=== PATIENT | female | born 1965 ===

== ENCOUNTER 2022-08-04 08:18 | Inpatient (IN) ==
[~2022-08-04 08:18] MED LIST: Buffered Lidocaine 1% SYRIN 1 ml INTRADERM ONE; Lactated Ringers 1000 ml BAG 1,000 ML IV SCH; Naloxone 0.4 mg VIAL 0.4 mg/ml 1 ml VIAL IV PRN; Ondansetron 4 mg VIAL 2 MG/ML 2 ml VIAL IV PRN; fentaNYL 100 mcg/2 ml 50 MCG/ML VIAL IV PRN; oxyCODONE/Acetamin 5/325 mg TAB PO PRN
[2022-08-04] MEDS ORDERED: Heparin 5000 UNITS/ML 1 mL VIAL ONE (09:00)
[2022-08-04] MEDS ORDERED: Dexamethasone IV 4 MG/ML VIAL 1 ml VIAL ONE ×2 (09:00→11:35)
[2022-08-04] MEDS ORDERED: Ondansetron 4 mg VIAL 2 MG/ML 2 ml VIAL ONE ×2 (09:00→14:43)
[2022-08-04] MEDS ORDERED: Scopolamine 1 mg/72hr PATCH ONE (09:00)
[2022-08-04] MEDS ORDERED: ceFAZolin 2 GM in NS PREMIX 2 GM/100 ML BAG IVPB ONE (09:01)
[2022-08-04] MEDS ORDERED: Gentamicin ADULT 40 MG/ML VIAL (2 ML VIAL = 80 MG) ONE (09:08)
[2022-08-04] MEDS ORDERED: Povidone Iodine 5% OPTH 30 ML BTL ONE (09:08)
[2022-08-04] MEDS ORDERED: ceFAZolin VIAL VIAL ONE ×2 (09:09→12:35)
[2022-08-04] MEDS ORDERED: Bupivacaine 0.25% SDV 30 ML ONE (09:09)
[2022-08-04] MEDS ORDERED: fentaNYL 100 mcg/2 ml 50 MCG/ML VIAL ONE (09:27)
[2022-08-04] MEDS ORDERED: Midazolam 2 mg/2 ml VIAL 1 mg/ml 2 ml VIAL (2 mg) ONE (09:27)
[2022-08-04] MEDS ORDERED: Lidocaine 2% PF 5 ML VIAL ONE (09:27)
[2022-08-04] MEDS ORDERED: Propofol 10 MG/ML 20 ML BTL ONE ×3 (09:27→14:44)
[2022-08-04] MEDS ORDERED: Bupivacaine 0.5% SDV PF 30ML VIAL ONE (10:41)
[2022-08-04] MEDS ORDERED: Sevoflurane BOTTLE ONE (11:28)
[2022-08-04] MEDS ORDERED: Rocuronium 50 mg VIAL 10 mg/ml 5 ml VIAL (50 mg) ONE (11:40)
[2022-08-04] MEDS ORDERED: Acetaminophen IV 1 GM/100ML 1,000 MG/100 ML BAG IV ONE (12:16)
[2022-08-04] MEDS ORDERED: HYDROmorphone 0.5 MG/0.5 ML SYRINGE ONE ×2 (12:31→14:42)
[2022-08-04] MEDS ORDERED: HYDROcodone/ACETAMIN 5/325 mg TAB PO PRN (13:22)
[2022-08-04] MEDS ORDERED: Morphine 2 MG/ML SYRINGE IV PRN (13:24)
[2022-08-04] MEDS ORDERED: Benzocaine/Menthol LOZ PO PRN (13:25)
[2022-08-04] MEDS ORDERED: Scopolamine 1 mg/72hr PATCH TRANSDERM SCH (14:00)
[2022-08-04] MEDS ORDERED: ceFAZolin 1 GM ADVAN 1 GM ADDV.VIAL IVPB ONE (14:56)
[2022-08-04] MEDS ORDERED: oxyCODONE/Acetamin 5/325 mg TAB ONE (16:18)
[2022-08-04] MEDS: Heparin 5000 UNITS/ML 1 mL VIAL SUBCUT SCH ×2 (17:26→21:32)
[2022-08-04] MEDS: ceFAZolin 2 GM in NS PREMIX 2 GM/100 ML BAG IVPB SCH (20:50)
[2022-08-04] MEDS ORDERED: Polyethylene Glycol 3350 17 GM PACKET PO SCH (21:00)
[2022-08-04] MEDS ORDERED: CMCS: Anastrozole 1 mg TAB (NF) PO SCH (21:00)
[2022-08-05] MEDS: ceFAZolin 2 GM in NS PREMIX 2 GM/100 ML BAG IVPB SCH ×2 (05:10→11:26)
[2022-08-05] MEDS: Heparin 5000 UNITS/ML 1 mL VIAL SUBCUT SCH (05:25)
[2022-08-05 13:13] VITALS: BP 124/83
== END 2022-08-05 15:12 | disposition home or self-care (01) | DRG 362 ==
LOC: AA 08:18 → EDSTATUS 09:45 → SSU 13:18
PROVIDERS: ADMIT Student in an Organized Health Care Education/Training Program; ATTEND Student in an Organized Health Care Education/Training Program